=== PATIENT | female | born 1970 | race Caucasian/White ===

== ENCOUNTER 2021-02-08 21:18 | Emergency (ER) | payer OTHER | END 2021-02-08 23:07 | disposition home or self-care (01) | LOC: JVIRT 21:18 | DX: Z11.52 Encounter for screening for COVID-19 (principal) | CPT/HCPCS: C9803; Q3014-GT; U0003; U0005 ==

== ENCOUNTER 2021-04-10 11:51 | Emergency (ER) | payer OTHER ==
[2021-04-10 11:59] VITALS: BP 155/88; PULSE 89; TEMP 98.3; BMI 29.2
[2021-04-10] MEDS ORDERED: KETOROLAC TROMETHAMINE 30 MG/1 ML VIAL IM ONE (12:26)
[2021-04-10] MEDS ORDERED: TAMSULOSIN HCL 0.4 MG CAP PO ONE (12:26)
[2021-04-10] MEDS ORDERED: KETOROLAC TROMETHAMINE 30 MG/1 ML VIAL ONE (12:30)
[2021-04-10] MEDS ORDERED: TAMSULOSIN HCL 0.4 MG CAP ONE (12:32)
[2021-04-10 12:45] LABS: PH,URINE 6.5 (5.0-8.0); URINE APPEARANCE CLEAR; URINE BILIRUBIN NEGATIVE (NEGATIVE); URINE COLOR YELLOW; URINE GLUCOSE (UA) NEGATIVE (NEGATIVE); URINE KETONE NEGATIVE (NEGATIVE); URINE LEUK ESTERASE NEGATIVE (NEGATIVE); URINE NITRITE NEGATIVE (NEGATIVE); URINE PROTEIN NEGATIVE (NEGATIVE); URINE UROBILINOGEN 0.2 mg/dL (0.2-1.0)
[2021-04-10 12:48] LABS: HCG,QUALITATIVE URINE Negative
== END 2021-04-10 13:56 | disposition home or self-care (01) ==
LOC: JERFT 11:51
PROC: 3E0233Z Introduction of Anti-inflammatory into Muscle, Percutaneous Approach (ICD-10-PCS; principal; 2021-04-10)
DX: M62.830 Muscle spasm of back (principal); M54.50 Low back pain, unspecified
CPT/HCPCS: 74176-TC; 81003; 84703; 87086; 99284-25

== ENCOUNTER 2021-06-03 14:33 | Emergency (ER) | payer SELFPAY | END 2021-06-03 14:48 | disposition home or self-care (01) | LOC: JVIRT 14:33 | DX: Z11.52 Encounter for screening for COVID-19 (principal) | CPT/HCPCS: 99283-25; C9803; U0003; U0005 ==